=== PATIENT | male | born 1980 | race Caucasian/White ===

== ENCOUNTER 2021-10-27 08:04 | Emergency (ER) | payer SELFPAY ==
[~2021-10-27] VITALS: Ht 180.3 cm; Wt 72.6 kg
[2021-10-27 08:11] VITALS: BP_SYST 126
[2021-10-27 08:26] VITALS: BP_SYST 126
== END 2021-10-27 08:26 ==
LOC: SED 08:04
DX: Z02.89 Encounter for other administrative examinations (principal)
CPT/HCPCS: 99283